=== PATIENT | male | born 1960 | race Hispanic/Latino ===

== ENCOUNTER 2021-01-31 05:32 | Emergency (ER) | payer OTHER ==
[2021-01-31] MEDS ORDERED: methylPREDNISolone Sod Succ/PF 125 MG/2 ML VIAL ONE (05:51)
[2021-01-31] MEDS ORDERED: Famotidine/PF 20 mg/2ml Vial ONE (05:52)
[2021-01-31] MEDS ORDERED: diphenhydrAMINE 50 MG/ML VIAL ONE (05:52)
== END 2021-01-31 08:18 | disposition home or self-care (01) ==
LOC: CSHERS 05:32
DX: L50.1 Idiopathic urticaria (principal); I10 Essential (primary) hypertension; E11.9 Type 2 diabetes mellitus without complications; I25.10 Atherosclerotic heart disease of native coronary artery without angina pectoris; I25.2 Old myocardial infarction; E78.5 Hyperlipidemia, unspecified; E78.00 Pure hypercholesterolemia, unspecified; Z79.82 Long term (current) use of aspirin; Z79.899 Other long term (current) drug therapy
CPT/HCPCS: 96374; 96375; J1200; J2930; S0028

== ENCOUNTER 2021-02-01 20:56 | Emergency (ER) | payer OTHER ==
[2021-02-01] MEDS ORDERED: predniSONE 20 MG TAB ONE (22:11)
== END 2021-02-01 22:15 | disposition home or self-care (01) ==
LOC: CSHERS 20:56
DX: L50.9 Urticaria, unspecified (principal); I25.2 Old myocardial infarction; I10 Essential (primary) hypertension; E11.9 Type 2 diabetes mellitus without complications; I25.10 Atherosclerotic heart disease of native coronary artery without angina pectoris; E78.5 Hyperlipidemia, unspecified; E78.00 Pure hypercholesterolemia, unspecified; Z79.82 Long term (current) use of aspirin; Z79.899 Other long term (current) drug therapy
CPT/HCPCS: 99282; J7512

== ENCOUNTER 2021-10-16 13:19 | Outpatient (CLI) | payer BC | END 2021-10-16 13:20 | disposition home or self-care (01) | LOC: CSHRAD 13:19 | PROVIDERS: ATTEND Urology | DX: N20.0 Calculus of kidney (principal); K80.20 Calculus of gallbladder without cholecystitis without obstruction | CPT/HCPCS: 74018 ==